=== PATIENT | male | born 1965 | race Caucasian/White ===

== ENCOUNTER → 2022-04-22 | Outpatient (CLI) | payer OTHER, SELFPAY ==
[2022-04-22 12:13] LABS: Absolute Lymphocyte Count 1.12 X10^3/uL (0.83-4.51); Absolute Neutrophil Count 3.4 X10^3/uL (2.0-7.7); Basophil# 0.04 X10^3/uL; Basophil% 0.7 % (0-1); Eosinophil# 0.21 X10^3/uL; Eosinophils% 3.9 % (0-5); Hematocrit 49.1 % (40-54); Hemoglobin 16.7 g/dL (13.0-16.5); Lymphocyte # 1.12 X10^3/ul (0.83-4.51); Lymphocyte % 20.9 % (19-41); Mean Corpuscular Hgb 28.4 pg (27.0-32.0); Mean Corpuscular Volume 83.5 fL (80-94); Monocyte# 0.54 X10^3/uL; Monocyte% 10.1 % (0-10); NRBC Flagged by Analyzer 0 % (0-5); Neutrophil # 3.41 X10^3/uL (2.7-7.7); Neutrophil % 63.8 % (47-70); Platelet Count 235 K/mm3 (150-450); RBC Distribution Width CV 12.2 % (11.6-14.6); RBC Distribution Width SD 36.8 fl (35.1-43.9); Red Blood Count 5.88 M/mm3 (4.6-6.2); White Blood Count 5.4 K/mm3 (4.4-11.0)
[2022-04-22 12:32] LABS: Vitamin D,25 Hydroxy 29.2 ng/mL
[2022-04-22 12:33] LABS: Anion Gap 5 (5-15); BUN 13 mg/dL (7-18); BUN/Creat Ratio 12.5 RATIO (10-20); Calcium,Total 9.3 mg/dL (8.5-10.1); Chloride 106 mmol/L (98-107); Cholesterol 181 mg/dL (200); Creatinine, Serum 1.04 mg/dL (0.70-1.30); EST Glomerular Filtration Rate 79 mL/min (>60); Est Glom Filt Rate - Afr Amer 96 mL/min (>60); Glucose 99 mg/dL (74-106); High Density Lipoprotein 49 mg/dL; PSA,Total - Annual Screen 0.46 ng/mL (0.00-4.00); Potassium 4.2 mmol/L (3.5-5.1); Sodium Level 139 mmol/L (136-145); Triglycerides 101 mg/dL; Very Low Density Lipoprotein 20 mg/dL (5-40)
== END | disposition home or self-care (01) ==
PROVIDERS: PCP Family Medicine; Referring Provider Family Medicine; Visit Provider Family Medicine
DX: Z01.818 Encounter for other preprocedural examination (principal)
CPT/HCPCS: 36415; 80048; 80061; 82306; 84153; 84443; 85025; G0103

== ENCOUNTER 2022-07-16 08:00 | Outpatient (RCR) | payer OTHER, SELFPAY ==
--- NOTE | 2022-05-27 12:15 | HP.PTEVAL_ITS ---
Patient's Visit Information NABOR LEES is a 56 year old M referred to Physical Therapy by Dr. Joaquín Ham MD with a diagnosis of Left TKR 05/11/22. Date of Evaluation: 05/27/22 Physical Therapist: Margaux Infante DPT - Visit Plan Frequency: 3x /Week Duration: 4 Weeks Plan: Left TKR 05/11/22- Focus on ROM, LE and core strength/stabilization, flex, proprioception and functional mobility. HEP Given IE: Reviewed current, TKE, step stretch, bolster extn stretch, seated heel slide - Subjective Left TKR 05/11/[address] Ham- stayed overnight and then headed home. Two story home with a basement with 2 steps- no HR coming in/out but both sides inside. No problems getting in/out. 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 Does plan to go back to work- no return to work date but thinking about 3 months. Pain at its worst: 11/15. Agg: working on flexion. Eases: elevation, ice Best: 06/18. Describes it as mostly throbbing and achy but when working hard on flexion its more sharp. No N/T. The pain is located around the ITBand, lateral knee and sometimes medial. Sleep: disturbed- still using narcotics at night- sleeps 50/50 in bed and chair- normally a side sleeper. He did have some home health at home- he is doing HEP of quad sets, glut sets, SLR, ROM ex. PMHx: knee scope prior Meds: oxy, colase, fiber pill, asprin, Tylenol - Objective Posture: FH, RS can correct but does not maintain. Gait: antalgic- straight cane- does not heel/toe pattern due to lack of ROM in the surgical knee. Stairs: asc: recip with 2 HR- desc can do recip with 2 HR but is unable to put foot flat on step and uses his toes to compensate for ROM. Observation: incision healing well no s/s of infection. Girth: 6 above 58.5 cm Patella: 42 cm. ROM: 10-70 degrees. Strength: Core: fair minus, Hip: 4+/5 SLR: does have mild lag due to quad strength, Knee: Flexion: 25 Extn: 30 Ankle: 5/5. Flex: HS: severe, Gastroc: moderate. SLS: weight shift but unable to SLS - Balance/Special Test Scores Lower Extremity Functional Score: 17 TUG Test Time Seconds: 13.52 WOMAC Total Score: 53 WOMAC Percentatge: 44.8000 - Goals Goal 1:: Patient will be I with HEP and progression Goal Time Frame: 4-6 Weeks Goal 2:: Patient will asc/desc 8 stairs recip with 1 HR Goal Time Frame: 4-6 Weeks Goal 3:: Patient will ambulate >300 feet with a normalized gait pattern Goal Time Frame: 4-6 Weeks Goal 4:: Patient will SLS for 30 sec without loss of balance Goal Time Frame: 4-6 Weeks Goal 5:: Patient will report 80% improvement Goal Time Frame: 4-6 Weeks - Rehabilitation Potential Physical Therapy Diagnosis: Patient presents s/p left total knee replacement 05/11/22- he has decreased LE and core strength/stabilization, ROM, proprioception, flex and muscular endurance leading to abnormal gait pattern and decreased ability to perform ADL's/Work related tasks Rehabilitation Potential: Good - Anticipated Interventions Patient/Client Instruction: Educate patient on: Benefits of Fitness Program Therapeutic Exercise to Include: Strength training, Endurance training, Balance training, Coordination, Agility training, Body mechanics, Postural training, Flexibilty training, Gait and locomotor training, Neuromotor development, Dynamic Lumbar Stabilization, Scapular Strength/Stabilization TENS: Yes Cryotherapy (ice pack, ice massage): Yes Thermo therapy (hot pack): Yes Ultrasound (thermal/non thermal): No Vasopneumatic device: Yes Thank you for the opportunity to evaluate your patient. For Medicare and Medicare HMO plans, please review the plan of care and approve it. It will need to be FAXED BACK to us at [phone] for Medicare purposes. For Medicare only, by signing this I certify the plan of care. Please let me know if there are questions or concerns regarding this plan of care. Physician Signature: Date:
--- NOTE | 2022-07-16 10:48 | HP.PTDCSUM ---
It has been my pleasure to treat NABOR LEES referred by Dr. Joaquín Ham MD, with the diagnosis of Left TKR 05/11/22 for a total of 24 visit(s). Discharge Date: Please see the following information for a summary of their discharge status. Subjective: He feels his knee is the best its felt in over 2 years. He has no pain just stiffness that comes and goes and its right after inactivity like in the morning when he wakes up. Once he gets moving he does great. It does ache but its weather related. He feels that he is 90% back to normal. Patient reports that he climbed ladder yesterday (35 feet- up/down 6 times) and was able to do without incidence. He has some hesitation due to his job duties but knows he can do the things but he has not had the opportunity to have to do them yet. Left Knee Pain Intensity (Out of 10): 0 % Improvement: 90 Objective/Function: Posture: good throughout Gait: no deviation noted- can run and walk with good tech Stairs: asc: recip with no HR Observation: incision healing well no s/s of infection. Girth: 6 above 56 cm Patella: 40 cm. ROM: 0-120 degrees. Strength: Core: fair minus, Hip: 5/5 Knee: Flexion: 58 Extn: 87 Ankle: 5/5. Flex: HS: severe, Gastroc: moderate. SLS:30 sec without LOB Goal 1:: Patient will be I with HEP and progression Goal Progress: Goal Met Goal 2:: Patient will asc/desc 8 stairs recip with 1 HR Goal Progress: Goal Met Goal 3:: Patient will ambulate >300 feet with a normalized gait pattern Goal Progress: Goal Met Goal 4:: Patient will SLS for 30 sec without loss of balance Goal Progress: Goal Met Goal 5:: Patient will report 80% improvement Goal Progress: Goal Met Plan: 07/16/22: Discharge to I [facility]. Left TKR 05/11/22- Focus on ROM, LE and core strength/stabilization, flex, proprioception and functional mobility If there are questions or concerns regarding this patient's physical therapy, please feel free to call me at [phone]. Thank you for the referral of this patient. Sincerely, Margaux Infante, DPT Balance/Gait/Functional tests - Balance/Special Test Scores Lower Extremity Functional Score: 61 TUG Test Time Seconds: 6.8 Tug Test: <10 sec.=free mobile 30 Second Chair Rise Test Seconds: 12 WOMAC Total Score: 2 WOMAC Percentage: 97.9200
== END 2022-07-16 14:53 | disposition home or self-care (01) ==
LOC: PT 08:00
PROVIDERS: PCP Family Medicine; Referring Provider Orthopaedic Surgery; Visit Provider Orthopaedic Surgery
DX: M17.12 Unilateral primary osteoarthritis, left knee (principal); Z47.1 Aftercare following joint replacement surgery; Z96.652 Presence of left artificial knee joint
CPT/HCPCS: 97110; 97140; 97162; 97164

== ENCOUNTER → 2025-04-17 | Outpatient (CLI) | payer OTHER, SELFPAY ==
[2025-04-17 12:29] LABS: Hematocrit 48.7 % (40-54); Hemoglobin 16.8 g/dL (13.0-16.5); Immature Granulocytes Count 0.050 X10^3/uL (0.0-0.0); Mean Corp Hgb Conc 34.5 g/dL (32-36); Mean Corpuscular Volume 81.2 fL (80-94); Mean Platelet Vol. 9.8 fl (6.2-12.0); NRBC Flagged by Analyzer 0 % (0-5); Platelet Count 250 K/mm3 (150-450); RBC Distribution Width CV 12.6 % (11.6-14.6); RBC Distribution Width SD 36.6 fl (35.1-43.9); Red Blood Count 6.00 M/mm3 (4.6-6.2); White Blood Count 6.4 K/mm3 (4.4-11.0)
[2025-04-17 13:11] LABS: AST(SGOT) 27 U/L (<=37); Alanine Aminotransfer ALT/SGPT 27 U/L (<=46); Albumin, Serum 4.2 g/dL (3.5-5.0); Alkaline Phosphatase 105 U/L (40-129); Anion Gap 12 (5-15); BUN 15 mg/dL (4-19); BUN/Creat Ratio 15.8 RATIO (10-20); Calcium,Total 9.7 mg/dL (7.6-11.0); Carbon Dioxide 23.2 mmol/L (21.0-32.0); Chloride 104 mmol/L (98-108); Cholesterol 189 mg/dL (<=200); Globulin 3.0 g/dL (2.2-4.2); Glucose 103 mg/dL (70-99); Low Density Lipoprotein Calc. 126 mg/dL; Potassium 4.3 mmol/L (3.3-5.1); Triglycerides 106 mg/dL; Very Low Density Lipoprotein 21 mg/dL (5-40); cholesterol:hdl ratio screen 4.33
== END | disposition home or self-care (01) ==
LOC: MFPLAB 11:02
PROVIDERS: PCP Family Medicine; Visit Provider Family Medicine
DX: Z01.818 Encounter for other preprocedural examination (principal); R53.83 Other fatigue
CPT/HCPCS: 36415; 80053; 80061; 84403; 84443; 85025